=== PATIENT | female | born 1995 | race Caucasian/White ===

== ENCOUNTER 2019-09-19 14:51 | Emergency (ER) | payer OTHER ==
[2019-09-19] MEDS ORDERED: Ibuprofen 800 MG TAB ONE (15:34)
[2019-09-19] MEDS ORDERED: traMADol HCl 50 MG TAB ONE (15:34)
== END 2019-09-19 15:50 | disposition home or self-care (01) ==
LOC: BURERS 14:51
DX: M23.91 Unspecified internal derangement of right knee (principal)
CPT/HCPCS: 99283